=== PATIENT | male | born 1965 | race Caucasian/White ===

== ENCOUNTER 2022-12-10 05:26 | Day surgery (SDC) | payer OTHER, SELFPAY ==
[2022-12-10] VITALS (7 sets, daily range): BP systolic 124–140; BP diastolic 78–94; PULSE 68–78; RESP 18; TEMP 36.3–36.7; O2SAT 84–100; BMI 28.3
[2022-12-10] MEDS: Lactated Ringers 1,000 ML 15 ML IV (05:57)
--- NOTE | 2022-12-10 06:32 | PCM.HP.STD ---
[facility] - General General Date of Admission: 12/10/22 Date of Service: 12/10/22 Chief Complaint: Screen colonoscopy HPI Narrative LUIS CHAMPAGNE, is a 57 M who presents today for screening colonoscopy. He had a colonoscopy approxi-5 years ago and he had a sessile serrated adenoma at that time. He is not have any abdominal pain. He has not have any signs and lower GI bleeding. Overall is in very good health. [facility] Medical History (Updated 12/04/22 @ 08:53 by Ludivina Love) Allergic rhinitis, unspecified CPAP (continuous positive airway pressure) dependence Obstructive sleep apnea Personal history of colonic polyps Sleep apnea Wears glasses Home Medications ascorbic acid (vitamin C) 1,000 mg tablet 1 g PO DAILY 10/15/22 [History Last Taken Unknown] cholecalciferol (vitamin D3) 25 mcg (1,000 unit) capsule 25 mcg PO DAILY 10/15/22 [History Last Taken Unknown] loratadine 10 mg tablet 10 mg PO DAILY 10/15/22 [History Last Taken Unknown] tadalafil 5 mg tablet 5 mg PO DAILY PRN Erectile Dysfunction 10/15/22 [History Last Taken Unknown] vitamin A palmitate 3,000 mcg (10,000 unit) capsule 10,000 unit PO DAILY 10/15/22 [History Last Taken Unknown] vitamin E (dl, acetate) 180 mg (400 unit) capsule 180 mg PO DAILY 10/15/22 [History Last Taken Unknown] Allergy/AdvReac Type Severity Reaction Status Date / Time No Known Allergies Allergy Unverified 12/10/22 05:47 Family History Father Cancer Surgical History History of colonoscopy History of vasectomy Social History (Updated 10/15/22 @ 08:36 by Jo Fishman) household members: spouse current occupational status: employed Smoking Status: Never smoker ROS Review of Systems ROS Unobtainable: other Constitutional Constitutional: Denies fatigue, fever(s), poor appetite, weight gain or weight loss ENT HEENT: Denies mouth lesions Cardiovascular Cardiovascular: Denies abdominal bloating, abdominal edema or abdominal pain Respiratory/Chest Respiratory/Chest: Denies change in mental status, change in phlegm color, chest congestion or chest tightness Gastrointestinal Gastrointestinal: Denies belching, bloating, change in bowel habits, change in stool character, chewing difficulty, coffee ground emesis, constipation, cramping, diarrhea, dyspepsia, dysphagia, early satiety, excessive flatus, fecal incontinence, heartburn, hematemesis, hematochezia, hemorrhoids, loose stools, melena, nausea, odynophagia, rectal bleeding, tenesmus, vomiting or weight changes Genitourinary Genitourinary: Denies abdominal discomfort, burning urination or itching Musculoskeletal Musculoskeletal: Reports as per HPI; Denies muscle weakness or myalgias Integumentary Integumentary: Denies jaundice Neurologic Neurologic: Denies lack of coordination or weakness Psychiatric Psychiatric: Denies confusion, depression, memory loss, mood swings, paranoia or suicidal ideation Endocrine Endocrinology: Denies systems reviewed and no addt'l complaints, except as documented Hematologic/Lymphatic Hematologic/Lymphatic: Denies anemia, easy bleeding, easy bruising or lymphadenopathy Allergic/Immunologic Allergic/Immunologic: Denies systems reviewed and no addt'l complaints, except as documented Vital Signs Vital Signs Vital Signs: 12/10/22 05:48 12/10/22 05:49 Temperature 97.3 F L Temperature Source Temporal Pulse Rate 75 Respiratory Rate 18 Respiratory Pattern Normal Blood Pressure 124/78 H Blood Pressure Mean 93 Blood Pressure Source Monitor Blood Pressure Position Semi-Fowlers Blood Pressure Location Left Arm Pulse Ox 100 Oxygen Delivery Method Room Air Weight Weight: 233 lb 3.2 oz Body Mass Index (BMI) 28.3 Physical Exam Const alert General Appearance: cooperative Orientation / Consciousness: oriented to person HEENT hearing grossly normal bilaterally Head and Scalp: normal to inspection Face and Sinus: face symmetric Nose: external nose normal Mouth: oral and palatal mucosa normal Eyes conjunctivae normal General Eye: normal appearance of both eyes Neck full ROM General: normal visual inspection Lymph Lymphatic: no lymphadenopathy noted Chest inspection of chest normal and palpation of chest normal Chest: symmetrical chest wall rise Resp normal respiratory effort Effort and Inspection: able to speak in complete sentences Cardio regular rate GI non-distended Percussion: normal to percussion Rectal Exam: deferred Neuro Speech: speech normal Gait (Neuro): normal gait Assessment & Plan Assessment/Plan (1) Encounter for screening for malignant neoplasm of colon: PLAN: He was explained alternatives, risk, benefits including outstanding bleeding, infection, sepsis, perforation, need for mergers or . He will have an-ASA of 1
--- NOTE | 2022-12-10 06:59 | OP.COLON_ITS ---
Patient Name: Farrukh Arias Procedure Date: 12/10/2022 6:15 AM Date of : 1965 Age: 57 Procedure: Colonoscopy Indications: Surveillance: Personal history of adenomatous polyps on last colonoscopy 5 years ago Providers: Herrera Aquino DO Referring MD: Herrera Aquino DO Medicines: Monitored Anesthesia Care Patient Profile: This is a 57 year old male. Refer to note in patient chart for documentation of history and physical. Last Colonoscopy: 5 years ago. Complications: No immediate complications. Procedure: Pre-Anesthesia Assessment: - Prior to the procedure, a History and Physical was performed, and patient medications and allergies were reviewed. The risks and benefits of the procedure and the sedation options and risks were discussed with the patient. All questions were answered and informed consent was obtained. Patient identification and proposed procedure were verified by the physician. Mental Status Examination: normal. Prophylactic Antibiotics: The patient does not require prophylactic antibiotics. Prior Anticoagulants: The patient has taken no previous anticoagulant or antiplatelet agents. After reviewing the risks and benefits, the patient was deemed in satisfactory condition to undergo the procedure. The anesthesia plan was to use monitored anesthesia care (MAC). Immediately prior to administration of medications, the patient was re-assessed for adequacy to receive sedatives. The heart rate, respiratory rate, oxygen saturations, blood pressure, adequacy of pulmonary ventilation, and response to care were monitored throughout the procedure. The physical status of the patient was re-assessed after the procedure. After I obtained informed consent, the scope was passed under direct vision. Throughout the procedure, the patient's blood pressure, pulse, and oxygen saturations were monitored continuously. The Colonoscope was introduced through the anus and advanced to the cecum, identified by appendiceal orifice and ileocecal valve. The colonoscopy was performed without difficulty. The patient tolerated the procedure well. The quality of the bowel preparation was good. Scope In: 6:38:34 AM Scope Withdrawal Time 0 hours 10 minutes 28 seconds Scope Out: 6:54:14 AM Total Procedure Duration Time 0 hours 15 minutes 40 seconds Findings: The perianal and digital rectal examinations were normal. A few small-mouthed diverticula were found in the recto-sigmoid colon and sigmoid colon. The exam was otherwise without abnormality on direct and retroflexion views. Impression: - Diverticulosis in the recto-sigmoid colon and in the sigmoid colon. - The examination was otherwise normal on direct and retroflexion views. - No specimens collected. Recommendation: - Discharge patient to home. - Resume previous diet. - Continue present medications. - Repeat colonoscopy in 5 years for surveillance. Procedure Code(s): --- Professional --- G0105, Colorectal cancer screening; colonoscopy on individual at high risk CPT copyright 2017 [employer]. All rights reserved. The codes documented in this report are preliminary and upon programming intern review may be revised to meet current compliance requirements. Herrera Aquino DO 12/10/2022 6:58:37 AM This report has been signed electronically. Number of Addenda: 0 Note Initiated On: 12/10/2022 6:15 AM
--- NOTE | 2022-12-10 06:59 | OP.CCLET_ITS ---
12/10/2022 Lady Denson Re : Colonoscopy procedure for Farrukh Jacintor Jarett This procedure was performed on November. My impressions and recommendations are as follows: Impressions : - Diverticulosis in the recto-sigmoid colon and in the sigmoid colon. - The examination was otherwise normal on direct and retroflexion views. - No specimens collected. Recommendations : - Discharge patient to home. - Resume previous diet. - Continue present medications. - Repeat colonoscopy in 5 years for surveillance. My findings are described in the full procedure note, which is enclosed. If I can be of further assistance, please feel free to contact me at . Sincerely, Herrera Aquino, 12/10/2022 6:58:37 AM This report has been signed electronically.
== END 2022-12-10 07:49 | disposition home or self-care (01) ==
LOC: EN 05:29 → AC 05:31
PROVIDERS: Referring Provider Internal Medicine Gastroenterology; Visit Provider Internal Medicine Gastroenterology
PROC: 0DJD8ZZ Inspection of Lower Intestinal Tract, Via Natural or Artificial Opening Endoscopic (ICD-10-PCS; CPT 45378; principal; 2022-12-10 06:25)
DX: Z12.11 Encounter for screening for malignant neoplasm of colon (principal); K57.30 Diverticulosis of large intestine without perforation or abscess without bleeding; G47.33 Obstructive sleep apnea (adult) (pediatric); Z99.89 Dependence on other enabling machines and devices; Z86.010 Personal history of colon polyps
CPT/HCPCS: G0105; J7120; J2405

== ENCOUNTER 2023-10-24 19:22 | Emergency (ER) | payer OTHER, SELFPAY ==
[2023-10-24 19:22] VITALS: BP 147/85; PULSE 82; RESP 18; TEMP 36.6; O2SAT 98; BMI 29.5
--- NOTE | 2023-10-24 19:51 | EX.ED.DYSGE1 ---
HPI History of Present Illness Chief Complaint: Burn Informant: patient Narrative Narrative: 58-year-old male presenting to the emergency room with a burn to the left forearm. Patient was cooking menendez when he went to empty the grease and it spilled onto his left forearm. He immediately ran it under water and remove the grease. He notes erythema and pain to the left forearm. He denies any hand injury. [facility] Medical History Allergic rhinitis, unspecified CPAP (continuous positive airway pressure) dependence Obstructive sleep apnea Personal history of colonic polyps Sleep apnea Wears glasses Home Medications ascorbic acid (vitamin C) 1,000 mg tablet 1 g PO DAILY 10/15/22 [History Last Taken Unknown] cholecalciferol (vitamin D3) 25 mcg (1,000 unit) capsule 25 mcg PO DAILY 10/15/22 [History Last Taken Unknown] loratadine 10 mg tablet 10 mg PO DAILY 10/15/22 [History Last Taken Unknown] tadalafil 5 mg tablet 5 mg PO DAILY PRN Erectile Dysfunction 10/15/22 [History Last Taken Unknown] vitamin A palmitate 3,000 mcg (10,000 unit) capsule 10,000 unit PO DAILY 10/15/22 [History Last Taken Unknown] vitamin E (dl, acetate) 180 mg (400 unit) capsule 180 mg PO DAILY 10/15/22 [History Last Taken Unknown] Allergy/AdvReac Type Severity Reaction Status Date / Time No Known Allergies Allergy Verified 10/24/23 19:22 Family History Father Cancer Surgical History History of colonoscopy History of vasectomy Social History household members: spouse current occupational status: employed Smoking Status: Never smoker ROS ROS ED Constitutional Constitutional ED: Denies chills, fever(s) or weight loss Eyes Eyes: Denies change in vision or diplopia ENT ENT ED: Denies ear pain, rhinorrhea or sore throat Cardiovascular Cardiovascular: Denies chest pain, orthopnea, palpitations or racing heartbeat Respiratory/Chest Respiratory/Chest: Denies cough, dyspnea or orthopnea Gastrointestinal Gastrointestinal: Denies abdominal pain, diarrhea, nausea or vomiting Genitourinary Genitourinary ED: Denies dysuria, hematuria or urinary frequency Musculoskeletal Musculoskeletal: Denies arthralgias or myalgias Integumentary Reports other Details: Burn ; Denies abscess or rash Neurologic Neurologic: Denies headache(s) or weakness Psychiatric Psychiatric: Denies anxiety, depression, suicidal ideation or suicidal thoughts Endocrine Endocrinology: Denies polydipsia, polyphagia or polyuria Allergic/Immunologic Allergic/Immunologic ED: Denies mouth swelling, tongue swelling or urticaria EXAM Physical Exam Const Vital Signs: 10/24/23 19:22 Temperature 97.9 F Temperature Source Temporal Pulse Rate 82 Respiratory Rate 18 Blood Pressure 147/85 H Blood Pressure Mean 105 Pulse Ox 98 Oxygen Delivery Method Room Air Positive well nourished and well developed General Appearance ED: well developed HEENT Reports normocephalic, head/scalp atraumatic and moist mucous membranes Eyes PERRL and EOMs intact bilaterally Neck no lymphadenopathy, supple and no JVD Resp normal respiratory effort and clear to auscultation bilaterally Cardio regular rate, regular rhythm and no murmurs GI normal to inspection, nondistended, normoactive bowel sounds and non-tender Palpation: soft Back/Spine no CVA tenderness and normal ROM Extremity Extremity Narrative: There is erythema along the length of the volar aspect left forearm. There is no blister formation. It is not circumferential. Neurovascular is intact distal to the burn. General Extremety ED: Negative for edema General Extremity: Negative for edema Neuro oriented x3 and CN's II-XII intact bilaterally Sensorium / Orientation: alert Motor Exam: strength 5/5 throughout Psych mental status grossly normal Mood & Affect: Negative for depressed or tearful Skin no rashes or lesions noted and no wounds MDM MDM MDM Narrative Medical decision making narrative: Expectant healing time and course discussed with patient. We will have him use Silvadene cream. Tylenol or Motrin for pain. Oxycodone for severe pain. Follow-up with primary care as needed return if worsening or concerns Discharge Plan Triage Chief Complaint: Burn ED Provider: Obdulio David Dx/Rx/DC Orders Prescriptions: No Action cholecalciferol (vitamin D3) 25 mcg (1,000 unit) capsule 25 mcg PO DAILY vitamin A palmitate 10,000 unit capsule 10,000 unit PO DAILY ascorbic acid (vitamin C) 1,000 mg tablet 1 g PO DAILY vitamin E (dl, acetate) 180 mg (400 unit) capsule 180 mg PO DAILY tadalafil 5 mg tablet 5 mg PO DAILY PRN (Reason: Erectile Dysfunction) loratadine 10 mg tablet 10 mg PO DAILY Primary Care Provider: EDUARDO GONZALES Referrals: EDUARDO GONZALES [Other]
--- OUTSIDE RECORDS SUMMARY | 2023-10-24 19:54 | XMS RPT_ITS | CCD ---
Author Name Unknown Address [address] [place] [address] Organization [facility] Care Team Providers Care Cadmium Burner Name Role Phone ROBINEAVN Unavailable Unavailable JG GIVENS Attending Unavailable KATIE ROSARIO Referring Unavailable KATIE ROSARIO Attending Unavailable EDUARDO GONZALES Primary Care Unavailable Problems Active Problems Problem Classification Problem Date Documented Date Episodic/Chronic Digestive congenital anomalies (2 sources) Other specified congenital malformations of intestine; Translations: [Other specified congenital malformations of intestine] Onset: 08-31-2017 Chronic Other and unspecified benign neoplasm (2 sources) Benign lipomatous neoplasm of skin and subcutaneous tissue of head, face and neck; Translations: [Benign lipomatous neoplasm of skin and subcutaneous tissue of head, face and neck] Onset: 09-02-2023 Episodic Other skin disorders (2 sources) Localized swelling, mass and lump, neck; Translations: [Localized swelling, mass and lump, neck] Onset: 09-29-2023 Episodic Past or Other Problems Problem Classification Problem Date Documented Da te Episodic/Chronic Hemorrhoids (2 sources) Residual hemorrhoidal skin tags; Translations: [Residual hemorrhoidal skin tags] Onset: 08-31-2017 Episodic Other and unspecified benign neoplasm (4 sources) Benign neoplasm of transverse colon; Translations: [Benign neoplasm of ascending colon] Onset: 08-31-2017 Episodic Unclassified (2 sources) Encounter for screening for malignant neoplasm of colon; Translations: [Encounter for screening for malignant neoplasm of colon] Onset: 08-31-2017 Episodic Results Test Name Value Interpretation Reference Range Facil ity Encounters Encounter Date Encounter Type Care Provider Facility Start: 09-29-2023 End: 09-30-2023 ambulatory KATIE ROSARIO [facility] Start: 09-02-2023 End: 09-02-2023 ambulatory JG GIVENS [facility] Start: 08-31-2017 End: 08-31-2017 Ambulatory [facility] Procedures Date Procedure Procedure Detail Performing Clinician Start: 05-04-2023 PSA screening Payers Date Payer Category Payer Unknown [id number] 1965 Unknown [id number] 1965 Unknown [id number] Summary Purpose Family History No Family History Records FoundNo Family History Records FoundNo Family History Records FoundNo Family History Records Found Advance Directives No Advanced Directives Records FoundNo Advanced Directives Records FoundNo Advanced Directives Records FoundNo Advanced Directives Records Found Additional Source Comments (unrecognized sect ion and content) No Status Records FoundNo Status Records FoundNo Status Records FoundNo Status Records Found INFORMATION SOURCE (unrecogn ized section and content) DATE CREATED AUTHOR AUTHOR'S ORGANIZ ATION 05/05/2023 [facility] DATE CREATED AUTHOR AUTHOR'S ORGANIZ ATION 09/05/2023 [facility] DATE CREATED AUTHOR AUTHOR'S ORGANIZ ATION 09/30/2023 [facility] FOR RECORDS PERTAINING TO PATIENTS WHO ARE OR HAVE BEEN ENROLLED IN A CHEMICAL DEPENDENCY/SUBSTANCEABUSE PROGRAM, SOME INFORMATION MAY BE OMITTED. This clinical summary was aggregated from multiple sources. Caution should be exercised in using it in the provision of clinical care. This summary normalizes information from multiple sources, and as a consequence, information in this document may materially change the coding, format and clinical context of patient data. In addition, data may be omitted in some cases. CLINICAL DECISIONS SHOULD BE BASED ON THE PRIMARY CLINICAL RECORDS. [employer] provides no warranty or guarantee of the accuracy or completeness of information in this document.
[2023-10-24 20:19] VITALS: BP 138/80; PULSE 80; RESP 16; O2SAT 97
== END 2023-10-24 20:19 | disposition home or self-care (01) ==
PROVIDERS: Emergency Provider Emergency Medicine; Visit Provider Emergency Medicine
DX: T22.012A Burn of unspecified degree of left forearm, initial encounter (principal); Z98.52 Vasectomy status; X10.2XXA Contact with fats and cooking oils, initial encounter; Y93.G3 Activity, cooking and baking
CPT/HCPCS: 99282

== ENCOUNTER 2025-02-19 16:51 | Emergency (ER) | payer OTHER, SELFPAY ==
[2025-02-19 16:52] VITALS: BP 136/89; PULSE 87; RESP 15; TEMP 36.7; O2SAT 96; BMI 29.7
--- NOTE | 2025-02-19 17:41 | EX.ED.DYSGE1 ---
HPI History of Present Illness Chief Complaint: Bite Informant: patient Narrative Narrative: Presents with increasing rash on his right inner thigh. Started 2 days ago. He states noted pimple and drained pus. He went to urgent care he was covered with prophylactic dose of doxycycline, he is put on steroid cream. He states he went golfing a couple times, redness has increased. No fevers. He states his home does have [place] and ticks. He has not had to remove a tick off himself. No history of similar. No change in soaps or detergents. Prior similar symptoms: No PFSH PFSH Medical History Wears glasses CPAP (continuous positive airway pressure) dependence Sleep apnea Allergic rhinitis, unspecified Personal history of colonic polyps Obstructive sleep apnea Home Medications ?Medication ?Instructions ?Recorded ?Last Taken ?Type ascorbic acid (vitamin C) 1,000 mg 1 g PO DAILY 10/15/22 Unknown History tablet cholecalciferol (vitamin D3) 25 25 mcg PO DAILY 10/15/22 Unknown History mcg (1,000 unit) capsule loratadine 10 mg tablet 10 mg PO DAILY 10/15/22 Unknown History tadalafil 5 mg tablet 5 mg PO DAILY PRN Erectile 10/15/22 Unknown History Dysfunction vitamin A palmitate 3,000 mcg 10,000 unit PO DAILY 10/15/22 Unknown History (10,000 unit) capsule vitamin E (dl, acetate) 180 mg 180 mg PO DAILY 10/15/22 Unknown History (400 unit) capsule oxycodone 5 mg tablet 5 mg PO Q6H PRN pain 3 days #12 10/24/23 Unknown Rx tabs silver sulfadiazine 1 % topical 1 applic topical BID 7 days #50 10/24/23 Unknown Rx cream (Silvadene) grams doxycycline monohydrate 100 mg 100 mg PO BID #14 CAPSULES 02/19/25 Unknown Rx capsule Allergy/AdvReac Type Severity Reaction Status Date / Time No Known Allergies Allergy Verified 02/19/25 16:52 Family History Father Cancer Surgical History History of vasectomy History of colonoscopy Social History household members: spouse current occupational status: employed Smoking Status: Never smoker ROS ROS ED Constitutional Constitutional ED: Denies fever(s) Cardiovascular Cardiovascular: Denies chest pain Respiratory/Chest Respiratory/Chest: Denies cough Gastrointestinal Gastrointestinal: Denies diarrhea or vomiting Musculoskeletal Musculoskeletal: Denies none Integumentary Reports rash; Denies wounds Neurologic Neurologic: Denies weakness EXAM Physical Exam Const Vital Signs: 02/19/25 16:52 02/19/25 17:54 Temperature 98.1 F 98.1 F Temperature Source Oral Temporal Pulse Rate 87 87 Respiratory Rate 15 15 Blood Pressure 136/89 H 136/89 H Blood Pressure Mean 104 104 Pulse Ox 96 96 Oxygen Delivery Method Room Air Positive well nourished and well developed General Appearance ED: well developed HEENT normocephalic and atraumatic Eyes General Eye ED: Yes normal appearance of both eyes Neck full ROM Resp normal respiratory effort and normal air movement Cardio regular rate and regular rhythm GI soft to palpation Extremity full ROM Neuro oriented x3 Skin Skin Narrative: Right lower leg: Inner thigh: Circular rash palm size with quarter size inner [place] darker pigmentation. There is no white rim around this for target lesions. 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 No fluctuance no induration no drainage. Nontender. MDM MDM MDM Narrative Medical decision making narrative: Interventions / MDM: Differential diagnosis: Right inner thigh cellulitis, Lyme disease Diagnosis considered but do not suspect: No clinical abscess. My EKG interpretation: N/A Imaging independently reviewed and interpreted by myself: N/A External documents reviewed: N/A Test considered but not ordered:N/A ED course: Patient with atypical target lesion circumferential right inner thigh it is enlarging. No fevers. His home does have [place] with ticks. Did not remove any. I checked his back torso and scalp no ticks were noted. Due to circular target-like lesion I did send for Lyme titer. I discussed with his reported drainage with pus initially could have introduced bacteria for skin infection this progress over 2 days he is afebrile is nontoxic. I will place him on doxycycline twice a day for 7 days for additional skin coverage for cellulitis. Discussed if titer returns positive he will need treatment for total 21 days. He understands this. Mets to bed provided and he will start his medication. Follow-up with PCP. All questions were answered. Re-evaluation: stable Disposition discussed with patient/family/significant other: Patient Case discussed with consulting clinician: N/A This note was generated with [employer] dictation software. It may contain incorrect words, spelling, and punctuation that were not noted in checking the note before signing. Discharge Plan Triage Chief Complaint: Bite ED Provider: Piotr Segura Dx/Rx/DC Orders Clinical Impression: Cellulitis of skin Instructions: Preventing Lyme Disease, Cellulitis Dc Prescriptions: New doxycycline monohydrate 100 mg capsule 100 mg PO BID Qty: 14 0RF No Action cholecalciferol (vitamin D3) 25 mcg (1,000 unit) capsule 25 mcg PO DAILY vitamin A palmitate 10,000 unit capsule 10,000 unit PO DAILY ascorbic acid (vitamin C) 1,000 mg tablet 1 g PO DAILY vitamin E (dl, acetate) 180 mg (400 unit) capsule 180 mg PO DAILY tadalafil 5 mg tablet 5 mg PO DAILY PRN (Reason: Erectile Dysfunction) loratadine 10 mg tablet 10 mg PO DAILY oxycodone 5 mg tablet 5 mg PO Q6H PRN (Reason: pain) 3 Days Qty: 12 0RF silver sulfadiazine [Silvadene] 1 % cream 1 applic topical BID 7 Days Qty: 50 0RF Rx Instructions: apply a 1.5 mm thickness Primary Care Provider: Michael Salgado Referrals: [facility] Doctor,Out of [Non-Staff] - Activity Restrictions/Additional Instructions: Lyme titer sent and pending. Take antibiotic as prescribed. This will cover for the cellulitis. If titer returns positive you will be contacted for treatment for total 21 days. Follow-up with your doctor. Print Language: Vietnamese Disposition Disposition: Home, Self Care Discharge Date/Time: 02/19/25 18:25
[2025-02-19 17:54] VITALS: BP 136/89; PULSE 87; RESP 15; TEMP 36.7; O2SAT 96
[2025-02-21 13:08] LABS: Lyme Scn Total Ab w/Rflx Negative (Negative)
== END 2025-02-19 18:25 | disposition home or self-care (01) ==
LOC: ED 17:50
PROVIDERS: Emergency Provider Emergency Medicine; PCP Pediatrics; Visit Provider Emergency Medicine
DX: L03.115 Cellulitis of right lower limb (principal); G47.33 Obstructive sleep apnea (adult) (pediatric); Z99.89 Dependence on other enabling machines and devices; Z98.52 Vasectomy status
CPT/HCPCS: 36415; 86618; 99282